=== PATIENT | male | born 1965 | race American Indian/Alaskan Native ===

== ENCOUNTER 2018-04-24 07:55 | Day surgery (SDC) | payer MEDICARE, OTHER ==
[2018-04-24] MEDS ORDERED: ANCEF/STERILE WATER 2 GM/20 ML IV NR (08:49)
[2018-04-24] MEDS ORDERED: LACTATED RINGERS 1,000 ML IV SCH (08:52)
[2018-04-24] MEDS ORDERED: VERSED IV NR (10:00)
[2018-04-24] MEDS ORDERED: OMNIPAQUE 300 MG/50 ML (CATH LAB) IV ONE (10:25)
[2018-04-24] MEDS ORDERED: WATER FOR IRRIG STERILE IR ONE (10:25)
[2018-04-24] MEDS ORDERED: GENTAMICIN/NS 80 MG/100 ML 100 ML IV SCH (10:36)
[2018-04-24] MEDS ORDERED: SUBLIMAZE ONE (10:58)
[2018-04-24] MEDS ORDERED: XYLOCAINE MPF 2% ONE (10:58)
[2018-04-24] MEDS ORDERED: DIPRIVAN 10 MG/ML IV ONE (10:58)
[2018-04-24] MEDS ORDERED: GENTAMICIN 400 MG in NACL 0.9% 100 ML IV NR (11:00)
--- NOTE | 2018-04-24 11:45 | Anesthesia Consultation ---
Anesthesia Consult and Med Hx Date of service: 04/24/18 - Airway Anesthetic Teeth Evaluation: Good ROM Head & Neck: Adequate Mental/Hyoid Distance: Adequate Mallampati Class: Class II Intubation Access Assessment: Probably Good - Pulmonary Exam CTA: Yes - Cardiac Exam Cardiac Exam: RRR - Pre-Operative Health Status ASA Pre-Surgery Classification: ASA3 Proposed Anesthetic Plan: General - Pulmonary Hx Smoking: No Hx Respiratory Symptoms: No COPD: No Hx Sleep Apnea: No (SOTERO PRE SCREEN HIGH RISK.) - Cardiovascular System Hx Hypertension: Yes (X 15 YRS) Hx Heart Attack/AMI: No Hx Percutaneous Transluminal Coronary Angioplasty (PTCA): No - Central Nervous System Hx Seizures: No CVA: No Hx Psychiatric Problems: Yes (PTSD) - Gastrointestinal Hx Gastroesophageal Reflux Disease: No - Endocrine Hx Renal Disease: No Hx Liver Disease: No Hx Insulin Dependent Diabetes: No Hx Non-Insulin Dependent Diabetes: No Hx Thyroid Disease: No - Other Systems Hx Alcohol Use: Yes (OCCASIONAL) - Additional Comments Anesthesia Medical History Comments: No hx anesthetic complications. Takes depakote for PTSD ( no hx seizure d/o).
--- NOTE | 2018-04-24 11:45 | Anesthesia Day of Surgery ---
Anesthesia Day of Surgery - Day of Surgery Patient Examined: Yes Patient H&P Reviewed: Yes Patient is NPO: Yes
[2018-04-24] MEDS ORDERED: LASIX ONE (11:47)
[2018-04-24] MEDS: SUBLIMAZE IV PRN ×2 (12:46→12:57)
--- NOTE | 2018-04-24 13:17 | Post Operative Note ---
Date of procedure: 04/24/18 Pre-op diagnosis: asymetrical gland hematuria Post-op diagnosis: same Findings: as above Procedure: cysto biopsy rpgs pus bx Anesthesia: GETA Surgeon: MISTY SANDERS Estimated blood loss: minimal Pathology: list (bladder prostate) Specimen disposition: to lab Condition: stable Disposition: PACU
--- NOTE | 2018-04-24 13:18 | Discharge Summary ---
Short Stay Discharge Plan Activity: other (no straining ) Weight Bearing Status: Full Weight Bearing Diet: low fat, low cholesterol, low salt Special Instructions: other (inc fluids ) Follow up with: VÍCTOR FERNANDEZ MD [Primary Care Provider] - 7 Days MISTY SANDERS MD [Staff Physician] - 7 Days Forms: Outpatient Surgery DC Inst.
[2018-04-24 13:33] VITALS: BP 134/93
--- NOTE | 2018-04-24 13:53 | Operative Report ---
PREOPERATIVE DIAGNOSIS: Asymmetrical palpable prostate and hematuria. POSTOPERATIVE DIAGNOSIS: Asymmetrical palpable prostate and hematuria. PROCEDURE: Cystoscopy with bladder biopsy, transrectal ultrasound and biopsy of the prostate. SURGEON: Isidoro Slade MD ANESTHESIA: General. FINDINGS: This is a gentleman with normal PSA, but he had a little isometry of the prostate. He also had hematuria. He now presents for cystoscopy. He did not want to done in the office. DESCRIPTION OF PROCEDURE: The patient was brought to the operating room and placed on the operating table. Following induction of anesthesia, he was placed in lithotomy position, and prepped and draped in usual sterile fashion. Cystourethroscopy showed some mild blanched areas in the trigone posterior wall of the bladder. These were white. They were non papillary and biopsy was taken. Retrograde showed good filling, good drainage with some air bubbles bilaterally. The patient tolerated the procedure well at this point. Fraser catheter was felt and ultrasound guided prostate biopsy after an exam and betadine prep was placed. We did not see any persistent defects or hypoechoic areas on ultrasound. The gland measured 28 grams. The patient tolerated the procedure well. We did sampling two on the left, two on the right. I was not suspicious based on the ultrasound and PSA being very low, but he did not want anything done in the office, so we wanted to make sure we had a sample. Two biopsies on the left, two on the right were carried out. No complications, brought to recovery room in stable condition. JOB# [id number] GINA/CASSIE
--- NOTE | 2018-04-24 14:09 | Post Anesthesia Evaluation ---
- Post Anesthesia Evaluation Patient Participated: Yes Airway Patent: Yes Stable Respiratory Function: Yes Nausea/Vomiting: No Temp > 96.8F: Yes Pain Manageable: Yes Adequeate Hydration: Yes Anesthesia Complications: No
[2018-04-24] MEDS ORDERED: PERCOCET 5/325 PO ONE (14:36)
--- NOTE | 2018-04-25 07:35 | Fluoroscopy Report ---
FLUOROSCOPY RETROGRADE UROGRAPHY: HISTORY: Gross hematuria. FINDINGS: Fluoroscopy was provided by radiology during retrograde urography by the urologist. 10 fluoroscopic images were captured. There is adequate filling of the ureters and intrarenal collecting systems with no filling defects or anatomic abnormalities identified. Bladder biopsy was performed per the operative note. Please correlate with the procedural report if needed. IMPRESSION: Retrograde pyelograms within normal limits.
--- NOTE | 2018-04-28 04:39 | Ultrasound Report ---
PROCEDURE: ULTRASOUND TRANSRECTAL TECHNIQUE: Real-time sonography in multiple planes of the prostate, seminal vesicles, and perirectal space was performed with image documentation HISTORY: ELEVATED PSA; PROSTATE BX COMPARISONS: None . FINDINGS: Prostate volume is 28.6 cc. IMPRESSION: Ultrasound guidance was provided for transrectal biopsy. . This document is electronically signed by Chavez Valenzuela MD., April 28 2018 04:37:18 AM ET
== END 2018-04-24 15:00 | disposition home or self-care (01) ==
LOC: OR 07:55
PROVIDERS: ATTEND Urology
DX: C61 Malignant neoplasm of prostate (principal); N32.89 Other specified disorders of bladder; R31.0 Gross hematuria; N42.89 Other specified disorders of prostate; E78.00 Pure hypercholesterolemia, unspecified; I10 Essential (primary) hypertension; M19.90 Unspecified osteoarthritis, unspecified site; F32.9 Major depressive disorder, single episode, unspecified; Z72.89 Other problems related to lifestyle; Z79.899 Other long term (current) drug therapy; Z98.890 Other specified postprocedural states
CPT/HCPCS: 36415; 52204; 55700; 74420; 76872; 84132; 88305; A4217; J0690; J1580; J1940; J2250; J2704; J3010; J7120; Q9967; 88344